=== PATIENT | male | born 1985 | race African-American/Black ===

== ENCOUNTER 2023-01-25 13:50 | Emergency (ER) | payer OTHER ==
[2023-01-25] MEDS ORDERED: Ondansetron ODT 4 MG TAB ONE (13:59)
[2023-01-25] MEDS ORDERED: Acetaminophen 500 MG TAB ONE (14:00)
== END 2023-01-25 15:03 | disposition home or self-care (01) ==
LOC: NAV ERS 13:50
DX: S16.1XXA Strain of muscle, fascia and tendon at neck level, initial encounter (principal); G44.309 Post-traumatic headache, unspecified, not intractable; F17.210 Nicotine dependence, cigarettes, uncomplicated; E10.9 Type 1 diabetes mellitus without complications; Z79.4 Long term (current) use of insulin; V44.5XXA Car driver injured in collision with heavy transport vehicle or bus in traffic accident, initial encounter
CPT/HCPCS: 70450; 72125; Q0162